=== PATIENT | female | born 1970 | race Two or more races ===

== ENCOUNTER → 2017-03-13 | Outpatient (CLI) | payer OTHER ==
--- NOTE | ~2017-03-13 | MY11 ---
[facility] A Service of [facility] RADIOLOGY TEXT RESULTS PATIENT: HAYLEE MOORE LOCATION: [facility] : 72 UNIT #: [id number] AGE: [address]: Destin Swartz MD SEX: F ORDER DR: [id number] [facility]. [place], [place] [address] [id number] O MR#: [id number] Acc #: [id number] NAME: HAYLEE MOORE : 1970 SEX: F STUDY DATE/TIME: 03/13/2017 9:06 UNIT: [facility] ROOM: STUDY DESCRIPTION: MY Mammogram Screening Dig Aldo Attending Physician: Destin Swartz M.D. Referring Physician: Destin Swartz M.D. Ordering Physician: Destin Swartz M.D. Primary Care Physician: Destin Swartz M.D. MEDICAL IMAGING REPORT This report is preliminary unless electronic signature is present EXAM Bilateral digital screening mammogram with CAD, 03/13/2017. INDICATION 46-year-old female for baseline screening mammogram. No personal or family history of breast cancer. FINDINGS The background breast parenchyma consists of heterogenously dense tissue. No suspicious mass, microcalcification, or architectural distortion. IMPRESSION Negative mammogram. RECOMMENDATIONS Annual screening mammogram. Patients over the age of 40 are entered into a reminder system with target due date for the next mammogram. A result letter will also be sent to the patient. BIRADS: 1 Negative Dictated by... David Álvarez M.D. THIS IS AN ELECTRONICALLY VERIFIED REPORT David Álvarez M.D. at 03/13/2017 12:08 PM MIKE/leesa TD: 03/13/2017 10:34 [facility] A Service of [facility] RADIOLOGY TEXT RESULTS PATIENT: HAYLEE MOORE LOCATION: [facility] : 72 UNIT #: [id number] AGE: [address]: Destin Swartz MD SEX: F ORDER DR: JOB #: [id number] MEDICAL IMAGING REPORT Page 1 of 1 COPY
== END | disposition home or self-care (01) ==
LOC: CWCC 08:36
DX: Z12.31 Encounter for screening mammogram for malignant neoplasm of breast (principal)
CPT/HCPCS: G0202